=== PATIENT | female | born 1935 | race Caucasian/White ===

== ENCOUNTER → 2016-06-19 | Outpatient (CLI) | payer OTHER ==
[2016-06-21 13:36] LABS: TISSUE TRANSGLUT AB IGA <1.2 U/mL (())
[2016-06-22 08:02] LABS: GLIADIN ANTIBODY IGA <10.0 U (()); GLIADIN ANTIBODY IGG <10.0 U (())
== END ==
LOC: LAB 14:13
PROVIDERS: ATTEND Internal Medicine Gastroenterology
DX: K52.89 Other specified noninfective gastroenteritis and colitis (principal); R19.7 Diarrhea, unspecified
CPT/HCPCS: 36415; 83516

== ENCOUNTER → 2016-08-31 | Outpatient (CLI) | payer OTHER ==
[2016-08-31 11:43] LABS: CHOL/HDL RATIO 2.77 RATIO (0-4.0); LDL CHOLESTEROL,CALCULATED 91.2 mg/dL; SERUM ALBUMIN 4.5 g/dL (3.5-4.8)
== END ==
LOC: MOB LAB 10:06
PROVIDERS: ATTEND Internal Medicine Cardiovascular Disease
DX: I25.10 Atherosclerotic heart disease of native coronary artery without angina pectoris (principal)
CPT/HCPCS: 36415; 80061; 80076

== ENCOUNTER → 2016-10-17 | Outpatient (CLI) | payer OTHER | LOC: MOB LAB 10:28 | DX: R30.0 Dysuria (principal); N30.01 Acute cystitis with hematuria; R82.99 Other abnormal findings in urine | CPT/HCPCS: 87077; 87088; 87186 ==